=== PATIENT | male | born 1990 | race Two or more races ===

== ENCOUNTER → 2021-05-22 | Outpatient (CLI) | payer OTHER ==
--- NOTE | 2021-05-22 08:31 | RAD ---
CT MAXILLOFACIAL WITHOUT CONTRAST History: Reason: RIGHT SIDED ORBITAL PAIN/FACIAL TRAUMA / Spl. Instructions: / History: Comparison: None. Technique: Noncontrast CT imaging was performed of the maxillofacial. Coronal and sagittal reconstruc tions were performed. Exposure: One or more of the following individualized dose reduction techniques were utilized for thi s examination: 1. Automated exposure control 2. Adjustment of the mA and/or kV according to patient size 3. Use of iterative reconstruction technique. Findings: Small left maxillary sinus mucous retention cyst. Minimal mucosal thickening within the ethmoid sinu ses. The the sphenoid and frontal sinuses are clear. Mild mucosal thickening within the ostiomeatal c omplexes. Patent frontoethmoidal recesses and sphenoid ostia. No fluid levels. Slight leftward nasal septal deviation. Small left ethmoid sinus osteoma measures 0.5 cm. Mastoid air cells are clear. No acute fracture. Chronic right somatic arch fracture. Orbits are unremarkable. Paranasal sinuses and mastoid air cells are clear. Imaged intracranial contents are unremarkable. Impression: 1. Minimal paranasal sinus disease. Electronically signed by: John Manley DO (05/22/2021 8:29 AM) [id number]
== END ==
LOC: CT 07:46
PROVIDERS: ATTEND Emergency Medicine
DX: S09.93XA Unspecified injury of face, initial encounter (principal); J32.8 Other chronic sinusitis; J34.1 Cyst and mucocele of nose and nasal sinus; J34.2 Deviated nasal septum; D16.9 Benign neoplasm of bone and articular cartilage, unspecified; X58.XXXA Exposure to other specified factors, initial encounter; Y93.89 Activity, other specified; Y92.89 Other specified places as the place of occurrence of the external cause; Y99.8 Other external cause status
CPT/HCPCS: 70486